=== PATIENT | female | born 1995 | race Two or more races ===

== ENCOUNTER 2024-06-01 01:05 | Emergency (ER) | payer MEDICAID, SELFPAY ==
[2024-06-01 01:26] VITALS: BP 114/68; PULSE 70; RESP 16; TEMP 37.1; O2SAT 96
--- NOTE | 2024-06-01 01:36 | EDNOTE_ITS ---
Upper Respiratory Inf. RME/HPI General Chief Complaint: Dental/Oral/Throat Stated Complaint: SORE THROAT Time Seen by Provider: 06/01/24 01:18 Arrival date/time: 06/01/24 01:05 29 year old female present to emergency room with c/o of strep exposure today. hx of strep LOCATION: posterior oral pharynx SEVERITY: Symptoms are described as being severe with limitations on activities of daily living QUALITY: Symptoms are described as being dull or achy CONTEXT: The patient is unable to identify any inciting events. DURATION/TIMING: The symptoms started approximately one day ago and have been constant this then. ASSOCIATED SYMPTOMS: The patient is unable to identify any other associated symptoms. MODIFYING FACTORS: worse with swallowing PERTINENT ROS: denies any food or liquids getting stuck, denies any generalized weakness, denies any trauma, no chest pain, no abdominal pain, no rashes, no joint swelling REVIEW OF SYSTEMS: See History of Present Illness - with the exception of those mentioned in the history of present illness, all other systems reviewed and reported as negative GENERAL: In general the patient is awake, interactive, in an emergency department gurney. HEAD/EYES/EARS/NOSE/THROAT: normo-cephalic, atraumatic, mucus membranes are moist, anicteric, palpebral conjunctiva is pink, trachea is midline. CARDIOVASCULAR: regular rate and regular rhythm, no murmurs, heart sounds are not distant, strong pulses in all four extremities that are equal and symmetric bilateral upper and lower extremities, normal capillary refill. CHEST/PULMONARY: normal chest rise and fall, good air movement, clear to auscultation bilaterally, normal inspiratory to expiratory ratios without evidence of respiratory distress. NECK: No midline/Paraspinal tenderness, no step off ROM/Strenght intact No Kernig and bruzinski sign. No trauma ABDOMEN: soft, not tender, no masses appreciated BACK: normal range of motion without pain. NEUROLOGICAL: cranio-facial features are symmetric, moves all four extremities equally without obvious limitations or weakness. EXTREMITY: no tenderness to palpation over the long bones or large joints of the bilateral upper and lower extremities, no joint swelling, no joint erythema, no signs of trauma, no unilateral leg swelling and no peripheral edema. SKIN: warm, dry, well-perfused, no jaundice, no rash, no telangiectasias or petechia. PSYCH: calm, cooperative, no evidence of psychosis or agitation Related Data Home Medications ?Medication ?Instructions ?Recorded ?Confirmed cholecalciferol (vitamin D3) 50 2,000 unit PO QDAY 02/27/19 02/27/19 mcg (2,000 unit) tablet (Vitamin D3) Previous Rx's ?Medication ?Instructions ?Recorded cephalexin 500 mg tablet 500 mg PO QID #28 tabs 02/22/19 ibuprofen 800 mg tablet 800 mg PO Q6H PRN pain #30 tabs 02/22/19 tramadol 50 mg tablet 50 mg PO .Q4 PRN pain #10 tabs 02/22/19 cephalexin 500 mg capsule (Keflex) 500 mg PO BID #30 caps 03/02/19 sulfamethoxazole 800 1 tab PO QDAY #30 tabs 03/02/19 mg-trimethoprim 160 mg tablet (Bactrim DS) artifi.tears(hypromellose)(PF) 0.3 1 drp ophthalmic (eye) Q1H PRN dry 08/30/20 % eye drops eyes #10 mL prednisone 50 mg tablet 50 mg PO QDAY #6 tabs 08/30/20 amoxicillin 500 mg capsule 500 mg PO Q12H #20 caps 06/01/24 Allergies Allergy/AdvReac Type Severity Reaction Status Date / Time No Known Allergies Allergy Verified 08/30/20 00:21 Course Course Course Narrative: strep exposure first dose given prior to discharge Quality Measures none Orders Category Date Time Status Amoxicillin Cap [Amoxil Cap] Med 06/01/24 01:34 Discontinued 500 mg PO X1 ONE Vital Signs Vital signs: Vital Signs Temperature 98.7 F 06/01/24 01:26 Pulse Rate 70 06/01/24 01:26 Respiratory Rate 16 06/01/24 01:26 Blood Pressure 114/68 06/01/24 01:26 Pulse Oximetry (%) 96 06/01/24 01:26 Oxygen Delivery Method Room Air 06/01/24 01:26 Upper Respiratory Infection Patient data External records reviewed:: None Clinical information provided by:: patient Social determinants that could affect healthcare access:: none Patient has the following chronic illnesses:: none How is presenting disease/condition affected by chronic disease/condition?: no chronic disease Evaluation data The following diagnostics were reviewed and interpreted by me:: other (specify) (none ) Lab and/or radiology exams considered but not ordered:: none Interpretation Summary: none Medications / Prescriptions Medications or Prescriptions considered but not ordered:: none Medication administrations:: Medication Administration History Discontinued Medications Amoxicillin (Amoxicillin 250 Mg Capsule) 500 mg PO X1 ONE Stop: 06/01/24 01:35 as stated above Consultations Consultation(s) initiated? (list below): No Diagnosis Upper Respiratory Differential Diagnosis: upper respiratory infection, viral infection, influenza and pharyngitis Most likely diagnosis given after review of the tests above:: strep exposure Admission Indicated Admission indicated?: not indicated Admission Request Was there a request for admission?: No Disposition Plan Disposition Plan: Discharge Discharge Attestation Discharge Attestation: The patient and all family members were given an opportunity to ask questions and understood the discharge instructions. Discharge instructions specifically effects, indications for sooner follow up or return to the emergency department, and the expected course of current diagnosis. Patient condition: Stable Discharge Plan Plan Patient Disposition: HOME (Self Care) Health Concerns: Follow with PMD as directed Take tylenol or motrin as need Return to ED if sx worsen Prescriptions/Referrals Prescriptions/Med Rec: New amoxicillin 500 mg capsule 500 mg PO Q12H Qty: 20 0RF No Action ibuprofen 800 mg tablet 800 mg PO Q6H PRN (Reason: pain) Qty: 30 0RF tramadol 50 mg tablet 50 mg PO .Q4 PRN (Reason: pain) Qty: 10 0RF cephalexin 500 mg tablet 500 mg PO QID Qty: 28 0RF cholecalciferol (vitamin D3) [Vitamin D3] 2,000 unit Tablet 2,000 unit PO QDAY cephalexin [Keflex] 500 mg capsule 500 mg PO BID Qty: 30 0RF sulfamethoxazole-trimethoprim [Bactrim DS] 800-160 mg tablet 1 tab PO QDAY Qty: 30 0RF prednisone 50 mg tablet 50 mg PO QDAY Qty: 6 0RF artifi.tears(hypromellose)(PF) 0.3 % drops 1 drp ophthalmic (eye) Q1H PRN (Reason: dry eyes) Qty: 10 1RF Rx Instructions: while awake; not to exceed 16 doses per 24 hour period Referrals: Temporary Provider,ED [Primary Care Provider] - In 1 week Problem List Clinical Impression: Pharyngitis, acute Patient/Caregiver Discharge Instructions Education Materials: Self-Care for Sore Throats Print Language: Bulgarian Stand Alone Forms: Maria Eugenia Award Info., Patient Portal Info Letter
[2024-06-01] MEDS: AMOXICILLIN 250 MG CAPSULE 500 MG PO (01:39)
== END 2024-06-01 01:43 | disposition home or self-care (01) ==
LOC: SERX 01:44
PROVIDERS: Emergency Provider Emergency Medicine; PCP Family Medicine
DX: J02.9 Acute pharyngitis, unspecified (principal)
CPT/HCPCS: 99282; A9270

== ENCOUNTER 2025-01-30 09:02 | Emergency (ER) | payer MEDICAID, SELFPAY ==
[2025-01-30 09:03] VITALS: BMI 37.9
[2025-01-30 09:10] VITALS: BP 143/85; PULSE 78; RESP 18; TEMP 36.4; O2SAT 97
--- NOTE | 2025-01-30 09:16 | PD.EDADULT ---
ED General RME/HPI General Chief complaint: General Adult/Misc Complain Stated complaint: MED REFILL Time Seen by Provider: 01/30/25 09:14 Arrival date/time: 01/30/25 09:02 Limitations: no limitations RME / HPI RME / HPI narrative: 30-year-old female here for refills on medications for depression no SI HI AH VH. States was unable to get an appointment and due to the holiday will not be available until 2 weeks from now. Otherwise no acute concerns no chest pain or shortness of breath Related Data Home Medications ?Medication ?Instructions ?Recorded ?Confirmed cholecalciferol (vitamin D3) 50 2,000 unit PO QDAY 02/27/19 02/27/19 mcg (2,000 unit) tablet (Vitamin D3) Previous Rx's ?Medication ?Instructions ?Recorded cephalexin 500 mg tablet 500 mg PO QID #28 tabs 02/22/19 ibuprofen 800 mg tablet 800 mg PO Q6H PRN pain #30 tabs 02/22/19 tramadol 50 mg tablet 50 mg PO .Q4 PRN pain #10 tabs 02/22/19 cephalexin 500 mg capsule (Keflex) 500 mg PO BID #30 caps 03/02/19 sulfamethoxazole 800 1 tab PO QDAY #30 tabs 03/02/19 mg-trimethoprim 160 mg tablet (Bactrim DS) artifi.tears(hypromellose)(PF) 0.3 1 drp ophthalmic (eye) Q1H PRN dry 08/30/20 % eye drops eyes #10 mL prednisone 50 mg tablet 50 mg PO QDAY #6 tabs 08/30/20 amoxicillin 500 mg capsule 500 mg PO Q12H #20 caps 06/01/24 fluoxetine 20 mg capsule 20 mg PO QDAY #30 caps 01/30/25 lamotrigine 25 mg tablet 50 mg (2 x 25 mg) PO QDAY 30 days 01/30/25 #60 tabs Allergies Allergy/AdvReac Type Severity Reaction Status Date / Time No Known Allergies Allergy Verified 08/30/20 00:21 Review of Systems Review of Systems Systems Reviewed: All systems reviewed, normal except as documented Constitutional Constitutional: Denies fever(s) ED Exam General Limitations: Present no limitations General appearance: Present alert and in no apparent distress Eye Eye exam: Present normal appearance, PERRL and EOMI Respiratory Respiratory exam: Present normal lung sounds bilaterally Cardiovascular Cardiovascular exam: Present regular rate, normal rhythm and normal heart sounds Extremities Exam Extremities exam: Present normal inspection and full ROM Psychiatric Psychiatric exam: Present normal affect and normal mood Skin Skin exam: Present warm, dry, intact and normal color Course Quality Measures none Vital Signs Vital signs: Vital Signs Temperature 97.5 F 01/30/25 09:10 Pulse Rate 78 01/30/25 09:10 Respiratory Rate 18 01/30/25 09:10 Blood Pressure 143/85 H 01/30/25 09:10 Pulse Oximetry (%) 97 01/30/25 09:10 Oxygen Delivery Method Room Air 01/30/25 09:10 Discharge Plan Plan Patient Disposition: HOME (Self Care) Discharge Disposition comment: f/u in 2-3days Prescriptions/Referrals Prescriptions/Med Rec: New fluoxetine 20 mg capsule 20 mg PO QDAY Qty: 30 0RF lamotrigine 25 mg tablet 50 mg PO QDAY 30 Days Qty: 60 0RF No Action ibuprofen 800 mg tablet 800 mg PO Q6H PRN (Reason: pain) Qty: 30 0RF tramadol 50 mg tablet 50 mg PO .Q4 PRN (Reason: pain) Qty: 10 0RF cephalexin 500 mg tablet 500 mg PO QID Qty: 28 0RF cholecalciferol (vitamin D3) [Vitamin D3] 2,000 unit Tablet 2,000 unit PO QDAY cephalexin [Keflex] 500 mg capsule 500 mg PO BID Qty: 30 0RF sulfamethoxazole-trimethoprim [Bactrim DS] 800-160 mg tablet 1 tab PO QDAY Qty: 30 0RF prednisone 50 mg tablet 50 mg PO QDAY Qty: 6 0RF artifi.tears(hypromellose)(PF) 0.3 % drops 1 drp ophthalmic (eye) Q1H PRN (Reason: dry eyes) Qty: 10 1RF Rx Instructions: while awake; not to exceed 16 doses per 24 hour period amoxicillin 500 mg capsule 500 mg PO Q12H Qty: 20 0RF Problem List Clinical Impression: Depression, Medication refill Patient/Caregiver Discharge Instructions Education Materials: ED Depression Print Language: Japanese Stand Alone Forms: Maria Eugenia Award Info., Patient Portal Info Letter PA/FIRER HELPER Supervising Physician PA/FIRER HELPER Supervising Physician: Dr. Nicolás COOPER Clinical Information Provided by patient Medical Records Reviewed [facility] Meds/Rx Considered, not Ordered None Describe details: all meds considered Labs/Rad/Tests considered, not Ordered Describe details: none Chronic Illness/Social Conditions which may negatively complicate care or outcome(s)-explain: other ( none)
== END 2025-01-30 09:33 | disposition home or self-care (01) ==
LOC: SERX 09:43
PROVIDERS: Emergency Provider Family Medicine
DX: Z76.0 Encounter for issue of repeat prescription (principal); F32.A Depression, unspecified
CPT/HCPCS: 99281